=== PATIENT | male | born 1965 | race Caucasian/White ===

== ENCOUNTER 2024-04-23 15:16 | Emergency (ER) | payer OTHER, BC, SELFPAY ==
--- NOTE | ~2024-04-23 | XR_ITS ---
EXAMINATION: XR ELBOW, LEFT CLINICAL INFORMATION: Swelling COMPARISON: None available. TECHNIQUE: AP, lateral, and oblique views of the left elbow. FINDINGS: The bones and soft tissues are normal. No fracture or joint effusion. Alignment is anatomic. Joint spaces are maintained. XR/XR elbow LT min 3V IMPRESSION: No fracture or dislocation of the elbow.
--- NOTE | ~2024-04-23 | CT_ITS ---
EXAMINATION: CT forearm left without contrast INDICATION: Reason for Exam ? LIGAMENT INJURY; PAIN COMPARISON: Radiographs from the same date. TECHNIQUE: Multidetector volumetric imaging was obtained through the left forearm without contrast. Multiplanar reformatted images in coronal and sagittal orientations were submitted. This CT examination was performed using dose optimization techniques as appropriate, variously including the following: *Automated exposure control *Adjustment of mA and/or kV according to patient size (this includes techniques or standardized protocols for targeted exams where dose is matched to indication/reason for exam; i.e. extremities or head) *Use of iterative reconstruction technique DLP: 465 mGy-cm FINDINGS: No fracture or malalignment. Elbow joint appears relatively well-preserved. Minimal osteoarthritis in the radiocarpal joint. There is posttraumatic arthritis at the fifth CMC joints with an old healed fracture of the fifth metacarpal base. There is a healed fracture of the fifth metacarpal shaft as well. Mild to moderate osteoarthritis is also noted in the first CMC joint and thumb MCP joint. There is a 1 x 1 x 2 cm cyst at the radial/volar margin of the radiocarpal joint, likely a ganglion cyst. No appreciable tendon injuries, though sensitivity is limited. Soft tissues are unremarkable. Musculature is unremarkable. CT/CT forearm LT wo IV con IMPRESSION: 1. No acute fracture or malalignment at the forearm. If there is a clinical concern for ligamentous injury, consider obtaining MRI without contrast. 2. 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 3. A 1 x 1 x 2 cm cyst at the radial/volar margin of the radiocarpal joint, likely a ganglion cyst.
--- NOTE | ~2024-04-23 | XR_ITS ---
EXAMINATION: XR WRIST, LEFT CLINICAL INFORMATION: Pain COMPARISON: None available. TECHNIQUE: PA, lateral, and oblique views of the left wrist. 4 views FINDINGS: There is nondisplaced fracture at the base of the fifth metacarpal seen on oblique view. There is an old healed fracture of the neck of the fifth metacarpal. Underlying mild degenerative osteoarthritis first carpometacarpal and metacarpophalangeal joints. Scaphoid is intact. Widening of the scapholunate space raise possibility of underlying intercarpal ligamental injury. XR/XR wrist LT min 3V IMPRESSION: 1. Nondisplaced fracture at the base of the fifth metacarpal poorly visualized due to bone overlap. CT scan could be utilized for confirmation.. 2. Widening of the scapholunate space raise possibility of underlying intercarpal ligamental injury. 3. Old healed fracture of the neck of the fifth metacarpal. 4. Underlying mild degenerative osteoarthritis.
[2024-04-23 15:47] VITALS: BP 118/71; PULSE 61; RESP 18; TEMP 36.3; O2SAT 96; BMI 27.2
--- NOTE | 2024-04-23 15:55 | ED_ITS ---
HPI - Extremity Problem General Chief complaint: Extremity Injury, Upper Stated complaint: left wrist/ work inj Time Seen by Provider: 04/23/24 15:52 Source: patient and RN notes reviewed Mode of arrival: ambulatory Limitations: no limitations History of Present Illness ED Provider: Palma Weber PA-C HPI Narrative: This is a 58-year-old male, with no known medical problems, who presents emergency department with complaints of left wrist and elbow pain status post injury which occurred today. Patient states that he was at work, he was and closing latches on plastic bin when suddenly he felt a popping sensation in his left wrist. He continued to work however he noticed increased swelling to the posterior aspect of his left wrist. He states that he now has pain that shoots all the way up into his left elbow. Denies history of similar pain in the past. He does report that he had a previous left 5th metacarpal fracture. He is right-handed. No other complaints or concerns at this time. MD Complaint: extremity pain and extremity swelling Onset (ago): hour(s) Pain Consistency: constant Location: left and upper extremity Quality: aching Radiation: proximal Relieving factors: immobilization Exacerbating factors: palpation Associated symptoms: denies other symptoms Related Data Allergies Allergy/AdvReac Type Severity Reaction Status Date / Time No Known Allergies Allergy Verified 04/23/24 15:50 Review of Systems 2 Review of Systems: Yes all other systems are reviewed and are negative Constitutional: Constitutional: Reports as per [facility] Past Medical History Attestation statement: The following information was validated with the patient. Social History Social History Alcohol intake: current Alcohol type: beer and hard liquor Smoked in Last 30 Days: Yes Use of substances other than those prescribed or required for medical reasons: No Advance Directives: No Advance Directives Information Provided: No Do you have a plan to hurt others: No Plan Physical Exam 2 Vital Signs: Vital Signs: Last Vital Signs Temp 98 F 04/23/24 21:53 Pulse 57 04/23/24 21:53 Resp 18 04/23/24 21:53 BP 155/74 H 04/23/24 21:53 Pulse Ox 98 04/23/24 21:53 O2 Del Method Room Air 04/23/24 21:53 BMI result Body Mass Index 27.2 Const: General: cooperative, comfortable and no acute distress O rientation/consciousness: patient oriented x3 Limitations: no limitations HEENT: Head: Yes normal to inspection, Yes normocephalic and Yes atraumatic Ears: hearing grossly normal bilaterally General nose exam: Normal external nose present Face and sinus: Yes normal facial exam Mouth: Normal oral and palatal mucosa present, oropharynx normal and moist mucous membranes Throat: Yes posterior oropharynx normal Eyes: General: appearance normal, both eyes and all related structures E yelids: Yes eyelids normal Conjunctivae: conjunctivae normal Sclerae: s clerae normal Pupils: Equal, round and reactive pupils present EOM: EOMs intact bilaterally Neck: Neck: Yes normal visual inspection, Yes full ROM and Yes no lymphadenopathy Lymphatic: no lymphadenopathy noted Chest: Chest palpation & inspection: normal inspection of the chest Resp: Effort & Inspection: normal respiratory effort and able to speak in complete sentences Auscultation: clear to auscultation bilaterally, no crackles, no rales, no rhonchi and no wheezes Cardio: Rate: regular rate Rhythm: regular rhythm Heart sounds: S1 normal heart sound present and S2 normal heart sound present GI: Inspection: Yes normal to inspection Skin: General skin exam: no rashes or lesions noted Trauma: no lacerations or abrasions Wounds: no wounds Neuro: General: patient oriented x3 and moves all extremities Cranial nerves: Yes Equal, round and reactive pupils present Extrem: Other: Palpable indurated 2 cm x 2 cm round mobile mass noted to anterior distal radial region. This area is nontender. On the medial aspect of the olecranon there is mild edema and exquisite tenderness palpation. With making fist on the left, he gets shooting pain into his left medial elbow. He has full range of motion of the elbow, full range of motion of the wrist, able to oppose all digits to thumb. Strong radial pulse, good research instructor strength. General: Yes normal to inspection Right upper extremity: normal to inspection Left upper extremity: normal to inspection Right lower extremity: normal to inspection Left lower extremity: normal to inspection Course Reevaluation(s) Reevaluation #1: X-rays revealing nondisplaced fracture at the base of the 5th metacarpal poorly visualized due to bone overlap, there is also widening of the scapholunate space which raises the possibility of underlying intercarpal ligamental injury. There is an old healed fracture of the neck of the left 5th metacarpal. There is also underlying mild degenerative arthritis. Left elbow unremarkable for any acute bony abnormalities. Given swelling, and concern for ligamentous injury, and question of fracture, CT was ordered for further assessment. I discussed this case with physician relations specialist, Andres Esquivel PA-C prior to CT scan results, states non urgent, he can follow-up outpatient with their office. Patient remains comfortable, stable, we will continue to monitor pending CT scan. Sign-out given to my colleague, Yobani Martinez PA-C pending CT results and disposition. Time: 19:05 Reevaluation #2: 7:00 p.m. receive sign-out with the patient in stable condition pending CT. 9:[address] returned, no fracture noted. Ganglion cyst noted at the anterior aspect of the left wrist. CT results were reviewed with the patient. He expresses understanding of all discharge instructions and has no further questions at this time. He will follow up with ortho. Medical Decision Making Medical Decision Making MDM Narrative: This is a 58-year-old male who presents emergency department with complaints of left wrist pain and left elbow pain status post work related injury today. On arrival, vital signs within normal limits. On examination, patient has palpable indurated 2 cm x 2 cm round mobile mass noted to anterior distal radial region. This area is nontender. On the medial aspect of the olecranon there is mild edema and exquisite tenderness palpation. He has full range of motion of the elbow, full range of motion of the wrist, able to oppose all digits to thumb. Differential diagnoses include tendon injury, tendon rupture, fracture, dislocation. Plan: X-rays Differential Diagnosis Differential Diagnoses: The differential diagnosis associated with the presentation includes Ligamentous injury, tendon rupture, fracture, sprain, strain Admission/Observation Consideration of admission/observation: Escalation of care including admission/observation considered Consult Healthcare Provider Management of the patient was discussed with: Medical Sales Representative Andres Esquivel PA-C Radiology Impression Discussion of test interpretation with radiology: I have reviewed the radiologist's reading. Radiologist Impression: XR/XR wrist LT min 3V IMPRESSION: 1. Nondisplaced fracture at the base of the fifth metacarpal poorly visualized due to bone overlap. CT scan could be utilized for confirmation.. 2. Widening of the scapholunate space raise possibility of underlying intercarpal ligamental injury. 3. Old healed fracture of the neck of the fifth metacarpal. 4. Underlying mild degenerative osteoarthritis. Dictated By: Jeanette Antonio MD EXAMINATION: XR ELBOW, LEFT CLINICAL INFORMATION: Swelling COMPARISON: None available. TECHNIQUE: AP, lateral, and oblique views of the left elbow. FINDINGS: The bones and soft tissues are normal. No fracture or joint effusion. Alignment is anatomic. Joint spaces are maintained. XR/XR elbow LT min 3V IMPRESSION: No fracture or dislocation of the elbow. Dictated By: Jeanette Antonio MD Independent Historian Clinical information obtained from an independent historian. History obtained from or confirmed by: Spouse Discharge Plan Discharge Clinical Impression: Pain and swelling of left wrist, Elbow pain, left, Ganglion cyst Patient Disposition: Home, Self-Care Instructions: Wrist Injury (ED), Ganglion Cysts (ED), Arthralgia (ED), R.I.C.E. Treatment (ED), Swollen Joint (ED) Additional Instructions: You were seen in the emergency department due to injuring your left wrist and left elbow. You need to follow-up with the orthopedic team, call on Thursday to make an appointment. Rest, ice, and elevate your right arm to help reduce swelling. You may alternate between ibuprofen and Tylenol as needed for pain. If any new or worsening symptoms occur including but not limited to worsening pain, worsening range of motion of your wrist, hand, and elbow, fevers, chills, chest pain, shortness of breath, please return for re-evaluation. Referrals: [facility] [Provider Group] Stand Alone Forms: Work/School Release Print Language: Anguillan
[2024-04-23 20:10] VITALS: BP 159/76; PULSE 53; RESP 18; TEMP 36.6; O2SAT 98
[2024-04-23 21:53] VITALS: BP 155/74; PULSE 57; RESP 18; TEMP 36.6; O2SAT 98
[2024-04-23 22:01] VITALS: BP 155/74; PULSE 57; RESP 18; TEMP 36.7; O2SAT 98
== END 2024-04-23 22:02 | disposition home or self-care (01) ==
PROVIDERS: Emergency Provider Emergency Medicine
DX: Z04.2 Encounter for examination and observation following work accident (principal); M67.432 Ganglion, left wrist; M25.522 Pain in left elbow; M25.532 Pain in left wrist
CPT/HCPCS: 73080; 73110; 73200; 99284